=== PATIENT | female | born 1980 | race Caucasian/White ===

== ENCOUNTER 2019-10-24 15:50 | Emergency (ER) | payer BC, OTHER, SELFPAY ==
[2019-10-24 15:58] VITALS: BP 134/71; PULSE 112; RESP 16; TEMP 38.4; O2SAT 98
--- NOTE | 2019-10-24 16:11 | ED.URI ---
HPI - URI/Sore Throat General Chief Complaint: Upper Respiratory Infection Stated Complaint: Congestion Time Seen by Provider: 10/24/19 16:00 History of Present Illness HPI Narrative: 39-year-old female presents with concern for cough, sore throat, fever, rhinorrhea, headache, nasal congestion. Reports her daughter was positive for influenza A yesterday. MD elicited complaint: cough Related Data Home Medications Medication Instructions Recorded Confirmed gabapentin 300 mg PO HS 10/24/19 10/24/19 Allergies Allergy/AdvReac Type Severity Reaction Status Date / Time buspirone Allergy Unknown swollen Verified 09/09/19 09:21 tongue escitalopram Allergy Unknown vision Verified 09/09/19 09:21 problem No Known Allergies Allergy Unverified 09/09/19 09:21 Review of Systems Review of Systems: Narrative: CONSTITUTIONAL: Reports malaise, chills, sweats, fever. EYES: Denies visual changes, redness, or discharge. ENT: Reports rhinorrhea, congestion, sore throat. Denies sinus pain, otalgia. CARDIOVASCULAR: Denies chest pain, palpitations, or edema. RESPIRATORY: Reports cough, chest congestion. Denies dyspnea. GASTROINTESTINAL: Denies abdominal pain, nausea, vomiting, diarrhea SKIN: Denies rash or itching. MUSCULOSKELETAL: Reports myalgia. NEUROLOGIC: Reports headache. [facility] Family History Family History (System 09/09/19 @ 09:21 by Rachna Mims) Other Family history of cardiovascular disease Social History Social History (System 09/09/19 @ 09:21 by Rachna Mims) Smoking status: Never smoker Alcohol intake: never Gender identity (if verbalized by the patient): Female Exam Narrative: Exam Narrative: GENERAL: Well-appearing, well-nourished, and in no acute distress. HEAD: Normocephalic EYES: PERRLA, conjunctivae clear ENT: Nares clear, turbinates erythematous, clear discharge. Mucous membranes moist. TM pearly brantley with dull light reflex bilaterally; no tragal tenderness. Oropharynx erythematous without lesions. Tonsils not enlarged and without exudate, no drooling, no hoarseness, no trismus. NECK: Supple. No lymphadenopathy CHEST: Clear to auscultation, breath sounds equal. No wheezing, rhonchi, rales, or stridor. No respiratory distress, speaks in full sentences. Cough noted HEART: Regular rate and rhythm. No murmur heard. Normal peripheral pulses. SKIN: Warm, dry, no rash. NEURO: Alert and oriented x3. PSYCH: Normal mood and affect Course Vital Signs Vital signs: Vital Signs Temperature 101.1 F H 10/24/19 15:58 Pulse Rate 112 H 10/24/19 15:58 Respiratory Rate 16 10/24/19 15:58 Blood Pressure 134/71 10/24/19 15:58 Pulse Oximetry 98 10/24/19 15:58 Temperature 101.1 F H 10/24/19 15:58 Pulse Rate 112 H 10/24/19 15:58 Respiratory Rate 16 10/24/19 15:58 Blood Pressure 134/71 10/24/19 15:58 Pulse Oximetry 98 10/24/19 15:58 Reviewed. Patient has been instructed to follow up with her primary care provider within the next week regarding her elevated blood pressure today. MDM - URI/Sore Throat MDM Narrative Medical decision making narrative: Differential diagnosis considered: Strep pharyngitis, allergic rhinitis, upper respiratory tract infection, sinusitis, rhinosinusitis, nasopharyngitis. viral pharyngitis, otitis media, otitis externa, pneumonia, bronchitis, viral cough syndrome, viral syndrome, and influenza. Exam findings show no acute concerns or changes; patient is non-toxic appearing and is in no distress. Patient is appropriate for outpatient treatment and follow-up. Lab Data Attestation: I reviewed the patient's lab results. Labs: Influenza A Screen Positive Reference Range: Negative Influenza B Screen Negative Reference Range: Negative Discharge Plan Discharge Clinical Impression: Influenza A Patient Disposition: Home, Self-Care Condition: Stable Instructions: Influenza (ED) Addition
== END 2019-10-24 16:16 | disposition home or self-care (01) ==
PROVIDERS: Emergency Provider Nurse Practitioner; PCP Family Medicine
DX: J11.1 Influenza due to unidentified influenza virus with other respiratory manifestations (principal)
CPT/HCPCS: 87804; 99213; G0463

== ENCOUNTER 2020-02-17 12:57 | Outpatient (CLI) | payer BC, OTHER, SELFPAY ==
--- NOTE | ~2020-02-17 | XR_ITS ---
EXAMINATION: XR ribs RT 2V DATE: 02/17/2020 13:20 INDICATION: Right rib pain. TECHNIQUE: 3 views of the right ribs were obtained. COMPARISON: None. FINDINGS: There is no right-sided pneumonia, pleural effusion, or pneumothorax. The heart size is nor mal. IMPRESSION: 1. No right rib fracture. Reviewed, dictated and finalized at location A. IMPRESSION: 1. No right rib fracture.
--- NOTE | ~2020-02-17 | XR_ITS ---
EXAMINATION: XR shoulder RT min 2V DATE: 02/17/2020 13:16 INDICATION: Right shoulder pain. TECHNIQUE: 4 views of right shoulder were obtained. COMPARISON: None. FINDINGS: Bone alignment is normal. No fracture. Joint spaces are well maintained. IMPRESSION: 1. Normal right shoulder. Reviewed, dictated and finalized at location A. IMPRESSION: 1. Normal right shoulder.
== END 2020-02-17 12:58 | disposition home or self-care (01) ==
LOC: ANHIMG 13:01
PROVIDERS: PCP Family Medicine; Visit Provider Family Medicine
DX: M25.511 Pain in right shoulder (principal)
CPT/HCPCS: 71100; 73030

== ENCOUNTER → 2020-09-29 10:11 | Outpatient (CLI) | payer BC, OTHER, SELFPAY ==
--- NOTE | ~2020-09-29 | US_ITS ---
EXAMINATION: US thyroid DATE: 09/29/2020 10:32 INDICATION: Thyroid nodule. TECHNIQUE: Multiple ultrasound images of the thyroid were obtained. COMPARISON: Ultrasound 09/01/2019, 09/30/2019 FINDINGS: The right thyroid lobe measures 6.1 x 2.2 x 1.6 cm. The left thyroid lobe measures 4.0 x 1.2 x 1.7 c m. In the right thyroid lobe, there is a 3.3 cm solid, hypoechoic, gpaqs-ryxw-vsto nodule with lobul ated margin with punctate echogenic foci (TI-RADS TR5). IMPRESSION: 1. Right thyroid nodule, stable from 09/30/2019. Biopsy at that time was consistent with benign follicu lar nodule. Reviewed, dictated and finalized at location A. L ENGINEERING SPECIALIST IMPRESSION: 1. Right thyroid nodule, stable from 09/30/2019. Biopsy at that time was consiste nt with benign follicular nodule.
== END ==
PROVIDERS: Visit Provider Otolaryngology
DX: E04.1 Nontoxic single thyroid nodule (principal)
CPT/HCPCS: 76536

== ENCOUNTER → 2021-02-01 08:08 | Outpatient (CLI) | payer BC, OTHER, SELFPAY ==
--- NOTE | ~2021-02-01 | MM_ITS ---
EXAMINATION: MM screening [facility] BI w aurelio HISTORY: Screening mammogram TECHNIQUE: Craniocaudal and mediolateral oblique 3-D tomosynthesis images were obtained and synthetic 2-D images were generated. CAD analysis was submitted and interpreted. COMPARISON: None, baseline BREAST PARENCHYMAL COMPOSITION: The breasts are heterogeneously dense, which may obscure small masses . FINDINGS: RIGHT BREAST: A focal asymmetry is present in the middle third of the upper outer breast approximatel y 3.7 cm deep to the nipple. LEFT BREAST: There is focal asymmetry in the posterior third of the upper outer quadrant of the breas t. IMPRESSION: 1. Bilateral focal asymmetries. 2. Additional mammographic views and possible breast ultrasound are recommended to evaluate for malig johnna and establish a baseline given that this is the first mammographic examination. BI-RADS Category 0: Incomplete: Needs additional imaging evaluation. Reviewed, dictated and finalized at location A. IMPRESSION: 1. Bilateral focal asymmetries. 2. Additional mammographic views and possible breast ultrasound are recommended to evaluate for malignancy and establish a baseline given that this is the fir st mammographic examination. BI-RADS Category 0: Incomplete: Needs additional imaging evaluation.
== END ==
PROVIDERS: PCP Family Medicine; Visit Provider Nurse Practitioner Obstetrics & Gynecology
DX: Z12.31 Encounter for screening mammogram for malignant neoplasm of breast (principal); R92.8 Other abnormal and inconclusive findings on diagnostic imaging of breast
CPT/HCPCS: 77063; 77067

== ENCOUNTER 2021-03-06 12:47 | Outpatient (CLI) | payer BC, OTHER, SELFPAY ==
--- NOTE | ~2021-03-06 | MM_ITS ---
EXAMINATION: MM diagnostic mammo BI HISTORY: Bilateral focal asymmetries on baseline screening mammogram TECHNIQUE: Additional 3-D tomosynthesis images of the breasts were performed and synthetic 2-D images were generated. CAD analysis was submitted and interpreted. COMPARISON: 02/01/2021 BREAST PARENCHYMAL COMPOSITION: The breasts are heterogeneously dense, which may obscure small masses . FINDINGS: There is no evidence of suspicious mass, calcification, or architectural distortion in eit her breast to suggest malignancy. IMPRESSION: 1. No mammographic evidence of malignancy. 2. Recommend routine screening mammography in one year. BI-RADS Category 1: Negative Reviewed, dictated and finalized at location A.
== END 2021-03-06 12:48 | disposition home or self-care (01) ==
LOC: ANHIMG 12:48
PROVIDERS: PCP Family Medicine; Visit Provider Nurse Practitioner Obstetrics & Gynecology
DX: R92.8 Other abnormal and inconclusive findings on diagnostic imaging of breast (principal)
CPT/HCPCS: 77066

== ENCOUNTER → 2021-10-10 07:49 | Outpatient (CLI) | payer BC, OTHER, SELFPAY ==
--- NOTE | ~2021-10-10 | US_ITS ---
EXAMINATION: US thyroid EXAM DATE: 10/10/2021 08:06 INDICATION: Nontoxic single thyroid nodule. TECHNIQUE: Multiple grayscale and Doppler images of the thyroid were obtained (by a technologist who performed the scan) and subsequently reviewed. Individual nodules and recommendations may be reporte d in accordance with TI-RADS system as designated by the 2017 ACR White Paper TI-RADS committee. Comp keith is made to prior examination from 09/29/2020. FINDINGS: The right thyroid lobe measures 6.3 x 2.1 x 2.2 cm, the left measuring 4.9 x 1.1 x 1.7 cm. Relatively homogeneous thyroid echogenicity. Largest nodule is in the right thyroid lobe, was previously biopsi ed with benign results, today measuring 4.0 x 1.9 x 2.8 cm (dimensions on prior study at 3.3 x 1.8 x 3.0 cm). The other nodules are subcentimeter in size and also not likely clinically significant. IMPRESSION: Continued increase in size of dominant right thyroid lobe nodule, previously biopsied wit h benign results. Reviewed, dictated and finalized at location B. E SPECIALIST IMPRESSION: Continued increase in size of dominant right thyroid lobe nodule, p reviously biopsied with benign results.
== END ==
PROVIDERS: PCP Family Medicine; Visit Provider Otolaryngology
DX: E04.1 Nontoxic single thyroid nodule (principal)
CPT/HCPCS: 76536

== ENCOUNTER 2022-04-03 09:45 | Outpatient (CLI) | payer BC, OTHER, SELFPAY ==
--- NOTE | ~2022-04-03 | MM_ITS ---
EXAMINATION: MM screening [facility] BI w aurelio HISTORY: Screening mammogram TECHNIQUE: Craniocaudal and mediolateral oblique 3-D tomosynthesis images were obtained and synthetic 2-D images were generated. CAD analysis was submitted and interpreted. COMPARISON: 03/06/2021, 02/01/2021 BREAST PARENCHYMAL COMPOSITION: There are scattered areas of fibroglandular density. FINDINGS: There is no suspicious mass, calcification, or architectural distortion to suggest malignan cy in either breast. There has been no suspicious interval change. IMPRESSION: 1. No mammographic evidence of malignancy. 2. Recommend routine screening mammography in one year. BI-RADS Category 1: Negative Reviewed, dictated and finalized at location A.
== END 2022-04-03 09:46 | disposition home or self-care (01) ==
LOC: ANHIMG 09:46
PROVIDERS: PCP Family Medicine; Visit Provider Nurse Practitioner Obstetrics & Gynecology
DX: Z12.31 Encounter for screening mammogram for malignant neoplasm of breast (principal)
CPT/HCPCS: 77063; 77067

== ENCOUNTER → 2022-09-06 12:04 | Outpatient (CLI) | payer BC, OTHER, SELFPAY ==
--- NOTE | ~2022-09-06 | US_ITS ---
EXAMINATION: US thyroid DATE: 09/06/2022 12:20 INDICATION: Nontoxic single thyroid nodule. TECHNIQUE: Multiple ultrasound images of the thyroid were obtained. COMPARISON: Ultrasound 10/10/2021, 09/01/19, 10/10/21 FINDINGS: The right thyroid lobe measures 6.4 x 2.2 x 1.9 cm. The left thyroid lobe measures 3.8 x 1.2 x 1.6 c m. In the right thyroid lobe, there is a 4.0 cm solid, hypoechoic, wider than tall nodule with kareem h margin and microcalcifications (TI-RADS TR5), not significantly increased in size from 09/01/19. Bi opsy on 09/30/19 was benign. In the right thyroid lobe, there is a 5 mm solid, hypoechoic, wider than t all nodule with smooth margin without echogenic foci (TR4). In the left thyroid lobe, there is a 4 mm nodule. IMPRESSION: 1. Multinodular goiter, likely not clinically significant. No follow-up is needed. Reviewed, dictated and finalized at location A. HER BELT LOOP CUTTER IMPRESSION: 1. Multinodular goiter, likely not clinically significant. No follow-up is need ed.
== END ==
PROVIDERS: PCP Family Medicine; Visit Provider Otolaryngology
DX: E04.2 Nontoxic multinodular goiter (principal)
CPT/HCPCS: 76536

== ENCOUNTER 2023-06-24 08:22 | Outpatient (CLI) | payer BC, OTHER, SELFPAY ==
--- NOTE | ~2023-06-24 | MM_ITS ---
EXAMINATION: MM screening [facility] BI w aurelio HISTORY: Screening mammogram TECHNIQUE: Craniocaudal and mediolateral oblique 3-D tomosynthesis images were obtained and synthetic 2-D images were generated. CAD analysis was submitted and interpreted. COMPARISON: 04/03/2022, 03/06/2021, 02/01/2021 BREAST PARENCHYMAL COMPOSITION: There are scattered areas of fibroglandular density. FINDINGS: No suspicious mass, calcification, or architectural distortion are identified in either enzo ast to suggest malignancy. There has been no suspicious interval change. IMPRESSION: 1. No mammographic evidence of malignancy. 2. Recommend routine screening mammography in one year. BI-RADS Category 1: Negative Reviewed, dictated and finalized at location A.
== END 2023-06-24 08:23 | disposition home or self-care (01) ==
PROVIDERS: PCP Family Medicine; Visit Provider Nurse Practitioner Obstetrics & Gynecology
DX: Z12.31 Encounter for screening mammogram for malignant neoplasm of breast (principal)
CPT/HCPCS: 77063; 77067

== ENCOUNTER 2024-07-02 08:05 | Outpatient (CLI) | payer OTHER, SELFPAY ==
--- NOTE | ~2024-07-02 | MM_ITS ---
EXAMINATION: MM screening [facility] BI w aurelio HISTORY: Screening TECHNIQUE: Craniocaudal and mediolateral oblique 3-D tomosynthesis images were obtained and synthetic 2-D images were generated. CAD analysis was submitted and interpreted. COMPARISON: Comparison to multiple prior studies sequentially, with oldest reviewed study dated 02/01. BREAST PARENCHYMAL COMPOSITION: Not dense: There are scattered areas of fibroglandular density. FINDINGS: There is no evidence of suspicious mass, calcification, or architectural distortion to sugg est malignancy in either breast. There has been no suspicious interval change. IMPRESSION: 1. No mammographic evidence of malignancy. 2. Recommend routine screening mammography in one year. BI-RADS Category 1: Negative Reviewed, dictated and finalized at location B.
== END 2024-07-02 08:06 | disposition home or self-care (01) ==
LOC: ANHIMG 08:08
PROVIDERS: PCP Registered Nurse; Visit Provider Registered Nurse
DX: Z12.31 Encounter for screening mammogram for malignant neoplasm of breast (principal)
CPT/HCPCS: 77063; 77067

== ENCOUNTER 2024-07-26 08:26 | Emergency (ER) | payer OTHER, SELFPAY ==
[2024-07-26 08:35] VITALS: BP 134/78; PULSE 78; RESP 18; TEMP 36.6; O2SAT 98
--- NOTE | 2024-07-26 08:53 | ED.URI ---
HPI - URI/Sore Throat General Chief Complaint: Upper Respiratory Infection Stated Complaint: sinus pressure and headache Time Seen by Provider: 07/26/24 08:53 Source: patient Mode of arrival: ambulatory Limitations: no limitations History of Present Illness HPI Narrative: 44-year-old female presents with complaint sinus pressure, sinus headaches, sinus congestion for approximately 10 days. Has had postnasal drainage, coughing the last few days. reports green nasal drainage. Reports increased fatigue. No chest pain or shortness of breath. Taking xjlp-jng-smxjwco sinus medications with no relief of symptoms. Denies nausea vomiting diarrhea. All systems reviewed and negative except as noted above. Related Data Home Medications Medication Instructions Recorded Confirmed gabapentin 100 mg capsule 300 mg PO HS 10/24/19 07/26/24 Allergies Allergy/AdvReac Type Severity Reaction Status Date / Time buspirone Allergy Unknown swollen Verified 07/26/24 08:43 tongue escitalopram Allergy Unknown vision Verified 07/26/24 08:43 problem Review of Systems Review of Systems: CONSTITUTIONAL: Denies fever, chills, or sweats. reports fatigue. EYES: Denies visual changes, redness, or discharge. ENT: Reports rhinorrhea, congestion, sore throat, sinus pressure. Denies otalgia. CARDIOVASCULAR: Denies chest pain, palpitations, or edema. RESPIRATORY: Reports cough, chest congestion. Denies dyspnea. GASTROINTESTINAL: Denies abdominal pain, nausea, vomiting, or diarrhea. GENITOURINARY: Denies dysuria or hematuria. SKIN: Denies rash or itching. MUSCULOSKELETAL: Denies back pain, joint pain, or myalgia. NEUROLOGIC: Denies headache, numbness, or weakness. PSYCHIATRIC: Denies anxiety or depression. All other systems reviewed are negative, except as documented in HPI. COUNTS INCLUDE 234 BEDS AT THE [facility] Family History Family History (System 09/09/19 @ 09:21 by Rachna Mims) Other Family history of cardiovascular disease Social History Social History (System 09/09/19 @ 09:21 by Rachna Mims) Smoking status: Never smoker Alcohol intake: never Gender identity (if verbalized by the patient): Female Comments At time of signature, agree with nursing past medical, surgical, social and family history. There is no relevant family history pertinent to the presenting complaint. Exam Narrative: GENERAL: This is a well-nourished, well-developed patient, Ill-appearing but no distress. HEAD: normocephalic, atraumatic. EYES: PERRL. Sclera clear/white. Vision is grossly intact. EARS: External ears normal, auditory canals clear and without drainage, TMs normal without perforation. Hearing grossly intact. NOSE: External nose normal with purulent nasal drainage, erythema swelling to bilateral nares. Bilateral maxillary sinus tenderness on palpation. THROAT: Mucous membranes moist, posterior pharynx clear. NECK: Neck supple, non-tender without lymphadenopathy, masses or thyromegaly. CARDIOVASCULAR: Regular rate and rhythm without murmurs, gallops, or rubs. RESPIRATORY: Clear to auscultation. Breath sounds equal bilaterally. No wheezes, rales, or rhonchi. SKIN: warm, Dry, intact with no suspicious lesions or rash, good texture and turgor. NEURO: awake, alert, and oriented to person, place and time. There were no obvious focal neurologic abnormalities. EXTREMITIES: No joint tenderness, effusion, or edema noted. Course Course Level of Care: Express Care Visit Vital Signs Vital signs: Vital Signs Temperature 36.6 C 07/26/24 08:35 Pulse Rate 78 07/26/24 08:35 Respiratory Rate 18 07/26/24 08:35 Blood Pressure 134/78 07/26/24 08:35 Pulse Oximetry 98 07/26/24 08:35 Oxygen Delivery Room Air 07/26/24 08:35 Temperature 36.6 C 07/26/24 08:35 Pulse Rate 78 07/26/24 08:35 Respiratory Rate 18 07/26/24 08:35 Blood Pressure 134/78 07/26/24 08:35 Pulse Oximetry 98 07/26/24 08:35 Oxygen Delivery Room Air 07/26/24 08:35 Reviewed MDM - URI/Sore Throat MDM Narrative Medical decision making narrative: will treat patient for bacterial sinusitis due to duration of symptoms and exam findings. Patient is aware of diagnosis, understands and agrees to treatment plan. Anticipatory guidance given. Patient agrees to follow-up as directed and is aware of reasons to seek care at the emergency department. Portions of this record may have been created with voice recognition software Differential Diagnosis Differential diagnosis: Likely upper respiratory infection, sinusitis, viral infection and bronchitis Discharge Plan Discharge Clinical Impression: Acute bacterial sinusitis Patient Disposition: Home, Self-Care Condition: Stable Instructions: Antibiotic Form, Sinusitis (ED) Additional Instructions: take medications as prescribed. Take antibiotic with full glass of water. Continue using mexq-syq-nygfanh Flonase. Taking yigr-ooq-gkmqojp medication to treat her symptoms such as Mucinex cold and Sinus. Drink at least 64 oz of water a day. Place cool mist humidifier in bedroom where you sleep. Drink hot tea with honey to soothe throat and treat cough. Follow-up with your doctor if symptoms are not improving. Prescriptions: New doxycycline hyclate 100 mg capsule 100 mg PO BID 7 Days Qty: 14 0RF benzonatate 200 mg capsule 200 mg PO TID PRN (Reason: cough) Qty: 20 0RF methylprednisolone [Medrol (Wai)] 4 mg tablets,dose pack See Rx Instructions PO .COMPLEX Qty: 21 0RF Rx Instructions: orally per package directions No Action gabapentin 100 mg Capsule 300 mg PO HS Follow-up/Referrals: Fifi,BAYLEE Souza [Primary Care Provider] - Time of Disposition: 09:02
== END 2024-07-26 09:06 | disposition home or self-care (01) ==
PROVIDERS: Emergency Provider Nurse Practitioner Family; PCP Registered Nurse
DX: J01.90 Acute sinusitis, unspecified (principal)
CPT/HCPCS: 99213; G0463

== ENCOUNTER 2024-10-05 10:49 | Outpatient (CLI) | payer OTHER, SELFPAY ==
--- NOTE | ~2024-10-05 | US_ITS ---
EXAMINATION: US thyroid DATE: 10/05/2024 11:03 INDICATION: Thyroid nodule. TECHNIQUE: Multiple ultrasound images of the thyroid were obtained. COMPARISON: Ultrasound 09/06/2022, 09/01/19 FINDINGS: The right thyroid lobe measures 6.7 x 2.2 x 2.4 cm. The left thyroid lobe measures 4.4 x 1.3 x 1.6 c m. In the right thyroid lobe, there is a 4.4 x 2.0 cm solid, hypoechoic, wider than tall nodule with smooth margin and punctate echogenic foci (TI-RADS TR5), not significantly increased in size from . Biopsy on 09/26/2019 was benign. IMPRESSION: 1. Stable benign thyroid nodule. No follow-up is needed. Reviewed, dictated and finalized at location A. DING SUPERVISOR
== END 2024-10-05 10:50 | disposition home or self-care (01) ==
LOC: MICIMG 10:50
PROVIDERS: PCP Registered Nurse; Visit Provider Otolaryngology
DX: E04.1 Nontoxic single thyroid nodule (principal)
CPT/HCPCS: 76536